=== PATIENT | male | born 2000 | race Caucasian/White ===

== ENCOUNTER → 2022-07-18 | Outpatient (CLI) | payer MEDICARE, MEDICAID | LOC: WOUNDCARE 14:20 | PROVIDERS: ATTEND Family Medicine | DX: L89.324 Pressure ulcer of left buttock, stage 4 (principal); L89.223 Pressure ulcer of left hip, stage 3; L89.153 Pressure ulcer of sacral region, stage 3; L89.213 Pressure ulcer of right hip, stage 3; L97.522 Non-pressure chronic ulcer of other part of left foot with fat layer exposed; M62.3 Immobility syndrome (paraplegic); G82.21 Paraplegia, complete; D64.4 Congenital dyserythropoietic anemia; E43 Unspecified severe protein-calorie malnutrition; T65.292A Toxic effect of other tobacco and nicotine, intentional self-harm, initial encounter | CPT/HCPCS: 11042; 11044; 11047; 87070; 87077; 87205 ==

== ENCOUNTER → 2022-07-28 | Outpatient (CLI) | payer MEDICARE, MEDICAID | LOC: WOUNDCARE 13:10 | PROVIDERS: ATTEND Family Medicine | DX: L89.324 Pressure ulcer of left buttock, stage 4 (principal); L89.223 Pressure ulcer of left hip, stage 3; L89.153 Pressure ulcer of sacral region, stage 3; L89.213 Pressure ulcer of right hip, stage 3; L97.522 Non-pressure chronic ulcer of other part of left foot with fat layer exposed; M62.3 Immobility syndrome (paraplegic); G82.21 Paraplegia, complete; D46.4 Refractory anemia, unspecified; E43 Unspecified severe protein-calorie malnutrition; T65.292A Toxic effect of other tobacco and nicotine, intentional self-harm, initial encounter; I96 Gangrene, not elsewhere classified | CPT/HCPCS: 11042; 11045; G0463 ==

== ENCOUNTER → 2022-08-01 | Outpatient (CLI) | payer MEDICARE, MEDICAID ==
[2022-08-01 17:23] LABS: BASOPHILS % (AUTO) 0 % (0-10); EOSINOPHILS # (AUTO) 0.2 10^3/uL (0.0-0.3); EOSINOPHILS % (AUTO) 2 % (0-10); HEMATOCRIT 35 % (40-54); HEMOGLOBIN 10.1 g/dL (13.3-17.7); LYMPHOCYTES # (AUTO) 2.4 10^3/uL (1.0-4.0); LYMPHOCYTES % (AUTO) 27 % (12-44); MEAN CORPUSCULAR HEMOGLOBIN 21 pg (25-34); MEAN CORPUSCULAR HGB CONC 29 g/dL (32-36); MEAN CORPUSCULAR VOLUME 74 fL (80-99); MEAN PLATELET VOLUME 9.2 fL (9.0-12.2); MONOCYTES # (AUTO) 0.8 10^3/uL (0.0-1.0); MONOCYTES % (AUTO) 9 % (0-12); NEUTROPHILS # (AUTO) 5.2 10^3/uL (1.8-7.8); NEUTROPHILS % (AUTO) 61 % (42-75); PLATELET COUNT 380 10^3/uL (130-400); WHITE BLOOD COUNT 8.6 10^3/uL (4.3-11.0)
[2022-08-01 17:38] LABS: ALBUMIN 3.7 GM/DL (3.2-4.5)
[2022-08-01 17:39] LABS: CALCIUM 8.7 MG/DL (8.5-10.1)
[2022-08-01 17:40] LABS: ERYTHROCYTE SEDIMENTATION RATE 22 MM/HR (0-15); TOTAL PROTEIN 7.1 GM/DL (6.4-8.2)
[2022-08-01 17:42] LABS: BILIRUBIN,TOTAL 0.3 MG/DL (0.1-1.0)
[2022-08-01 17:44] LABS: CREATININE SERUM 0.53 MG/DL (0.60-1.30)
== END ==
LOC: LABNPT 17:15
PROVIDERS: ATTEND Family Medicine
DX: L89.153 Pressure ulcer of sacral region, stage 3 (principal); D64.4 Congenital dyserythropoietic anemia; L89.324 Pressure ulcer of left buttock, stage 4; E43 Unspecified severe protein-calorie malnutrition
CPT/HCPCS: 80053; 82607; 82728; 82746; 83540; 83550; 84134; 85025; 85652; 86141

== ENCOUNTER → 2022-08-04 | Outpatient (CLI) | payer MEDICARE, MEDICAID | LOC: WOUNDCARE 13:16 | PROVIDERS: ATTEND Family Medicine | DX: I96 Gangrene, not elsewhere classified (principal); L89.213 Pressure ulcer of right hip, stage 3; L89.324 Pressure ulcer of left buttock, stage 4; M62.3 Immobility syndrome (paraplegic); G82.21 Paraplegia, complete; D46.4 Refractory anemia, unspecified; E43 Unspecified severe protein-calorie malnutrition; T65.292A Toxic effect of other tobacco and nicotine, intentional self-harm, initial encounter; L89.523 Pressure ulcer of left ankle, stage 3; Z68.1 Body mass index [BMI] 19.9 or less, adult | CPT/HCPCS: 11042; 11045; 17250; A6212; G0463 ==

== ENCOUNTER → 2022-08-11 | Outpatient (CLI) | payer MEDICARE, MEDICAID | LOC: WOUNDCARE 13:35 | PROVIDERS: ATTEND Family Medicine | DX: I96 Gangrene, not elsewhere classified (principal); L89.324 Pressure ulcer of left buttock, stage 4; L89.213 Pressure ulcer of right hip, stage 3; M62.3 Immobility syndrome (paraplegic); G82.21 Paraplegia, complete; D46.4 Refractory anemia, unspecified; E43 Unspecified severe protein-calorie malnutrition; T65.292A Toxic effect of other tobacco and nicotine, intentional self-harm, initial encounter; L89.523 Pressure ulcer of left ankle, stage 3; Z68.1 Body mass index [BMI] 19.9 or less, adult | CPT/HCPCS: 11042; 11045; A6212; G0463 ==

== ENCOUNTER → 2022-08-26 | Outpatient (CLI) | payer MEDICARE, MEDICAID | LOC: WOUNDCARE 10:36 | PROVIDERS: ATTEND Family Medicine | DX: L89.324 Pressure ulcer of left buttock, stage 4 (principal); L89.313 Pressure ulcer of right buttock, stage 3; L89.523 Pressure ulcer of left ankle, stage 3; M62.3 Immobility syndrome (paraplegic); G82.20 Paraplegia, unspecified; D46.4 Refractory anemia, unspecified; E43 Unspecified severe protein-calorie malnutrition; T65.292A Toxic effect of other tobacco and nicotine, intentional self-harm, initial encounter; I96 Gangrene, not elsewhere classified | CPT/HCPCS: 11042; 11045; A6212; G0463 ==

== ENCOUNTER → 2022-09-01 | Outpatient (CLI) | payer MEDICARE, MEDICAID | LOC: WOUNDCARE 13:06 | PROVIDERS: ATTEND Family Medicine | DX: I96 Gangrene, not elsewhere classified (principal); L89.324 Pressure ulcer of left buttock, stage 4; L89.213 Pressure ulcer of right hip, stage 3; M62.3 Immobility syndrome (paraplegic); G82.21 Paraplegia, complete; D46.4 Refractory anemia, unspecified; E43 Unspecified severe protein-calorie malnutrition; T65.292A Toxic effect of other tobacco and nicotine, intentional self-harm, initial encounter; L89.523 Pressure ulcer of left ankle, stage 3; Z68.1 Body mass index [BMI] 19.9 or less, adult | CPT/HCPCS: 11042; 11045; 87070; 87077; 87186; 87205; A6212; G0463 ==

== ENCOUNTER → 2022-09-06 | Outpatient (CLI) | payer MEDICARE, MEDICAID | LOC: WOUNDCARE 12:33 | PROVIDERS: ATTEND Family Medicine | DX: L89.324 Pressure ulcer of left buttock, stage 4 (principal); L89.213 Pressure ulcer of right hip, stage 3; L89.523 Pressure ulcer of left ankle, stage 3; M62.3 Immobility syndrome (paraplegic); D46.4 Refractory anemia, unspecified; E43 Unspecified severe protein-calorie malnutrition; T65.292A Toxic effect of other tobacco and nicotine, intentional self-harm, initial encounter; B95.62 Methicillin resistant Staphylococcus aureus infection as the cause of diseases classified elsewhere; I96 Gangrene, not elsewhere classified; G82.21 Paraplegia, complete | CPT/HCPCS: 11042; 11045; 97605; G0463 ==

== ENCOUNTER → 2022-09-22 | Outpatient (CLI) | payer MEDICARE, MEDICAID | LOC: WOUNDCARE 13:03 | PROVIDERS: ATTEND Family Medicine | DX: L89.324 Pressure ulcer of left buttock, stage 4 (principal); L89.213 Pressure ulcer of right hip, stage 3; M62.3 Immobility syndrome (paraplegic); G82.21 Paraplegia, complete; D46.4 Refractory anemia, unspecified; E43 Unspecified severe protein-calorie malnutrition; T65.292A Toxic effect of other tobacco and nicotine, intentional self-harm, initial encounter; I96 Gangrene, not elsewhere classified | CPT/HCPCS: 11042; 11045; 97605; A6212; G0463 ==

== ENCOUNTER 2022-10-14 20:13 | Emergency (ER) | payer MEDICARE, MEDICAID ==
[~2022-10-14] VITALS: Ht 190 cm; Wt 68.0 kg
[2022-10-14] MEDS ORDERED: LIDOCAINE UROJET 2% GEL 10 ML PKG ONE (20:57)
[2022-10-14] MEDS ORDERED: LIDOCAINE UROJET 2% GEL 10 ML PKG TOP ONE (21:00)
[2022-10-14 21:32] LABS: BILIRUBIN,URINE 1+ (NEGATIVE); CLARITY,URINE TURBID; COLOR,URINE YELLOW; GLUCOSE, URINE (UA) NEGATIVE (NEGATIVE); KETONES,URINE NEGATIVE (NEGATIVE); LEUKOCYTE ESTERASE ,URINE 2+ (NEGATIVE); NITRITE,URINE POSITIVE (NEGATIVE); PH,URINE 6.5 (5-9); PROTEIN,URINE 2+ (NEGATIVE)
[2022-10-14 21:39] LABS: BACTERIA,URINE LARGE /HPF; RBC,URINE 50-100 /HPF; WBC,URINE >100 /HPF
--- NOTE | 2022-10-14 21:47 | ED General ---
General Chief Complaint: General Problems/Pain Stated Complaint: CATHETER LEAKING Nursing Triage Note: PT TO ED W/ CARE WORKER FOR C/O CATHETER "ISSUES". CARE WORKER REPORTS PT'S CATHETER BEGAN LEAKING THIS EVENING SO THEY CALLED HOME HEALTH TO HAVE IT CHANGED ET HOME [facility]ALTH REPORTED TO THEM THEY NEEDED TO GO TO THE ED THEY "DIDN'T HAVE AN ORDER". PT ET CARE WORKER ALSO VOICE CONCERN OVER THE SEDIMENT IN PT'S URINE. Source of Information: Patient, Caregiver Exam Limitations: No Limitations History of Present Illness Date Seen by Provider: Oct 14, 2022 Time Seen by Provider: 20:45 Initial Comments Patient is a 21-year-old male paraplegic for the last 3 years brought to the emergency department by care worker chief complaint catheter "issues". She noticed increased sediment, he has had a little abdominal discomfort and nausea. Catheters been in place for about 2 weeks. No reported fevers or chills. No nausea vomiting. No diarrhea. Care worker is also a little concerned about his wound VAC to the left buttock. He is followed at wound care by Dr. Fernanda Caal. Patient reports no other concerns for illness. Timing/Duration: 1 Day Severity: Mild Associated Systoms: Denies Symptoms Allergies and Home Medications Allergies Coded Allergies: piperacillin (Unverified Allergy, Unknown, 10/14/22) tazobactam (Unverified Allergy, Unknown, 10/14/22) vancomycin (Unverified Allergy, Unknown, 10/14/22) Patient Home Medication List Home Medication List Reviewed: Yes Sulfamethoxazole/Trimethoprim (Bactrim Ds Tablet) 1 Each Tablet, 1 EACH PO BID Prescribed by: MAYO BOYLE on 10/14/222220 Review of Systems Review of Systems Constitutional: see HPI EENTM: no symptoms reported Respiratory: no symptoms reported Cardiovascular: no symptoms reported Gastrointestinal: nausea (slight abdominal discomfort) Genitourinary: other (sediment in catheter) Musculoskeletal: no symptoms reported Skin: other (wound vac concern) All Other Systems Reviewed Negative Unless Noted: Yes Past Itdoxzu-Dsnrxm-Cwpoit Hx Past Medical History Surgery/Hospitalization HX: [facility] PARAPLEGIC KIDNEY STONES T&A 10/13-PT PRESENTLY HAS WOUND VAC Physical Exam Vital Signs Vital Signs - First Documented 10/14/22 20:18 Temp 36.0 Pulse 108 Resp 20 B/P (MAP) 111/71 (84) Pulse Ox 100 O2 Delivery Room Air Capillary Refill : Less Than 3 Seconds Height, Weight, BMI Height: '" Weight: lbs. oz. kg; 18.00 BMI Method: General Appearance: No Apparent Distress, WD/WN HEENT: PERRL/EOMI Respiratory: Lungs Clear, Normal Breath Sounds, No Accessory Muscle Use, No Respiratory Distress Cardiovascular: Regular Rate, Rhythm Gastrointestinal: Soft Genital/Rectal: Other (unclean area; circumcised; meek in place - tubing is dirty and lots of sediment) Extremity: Normal Inspection Neurologic/Psychiatric: Alert, Oriented x3 Skin: Normal Color, Warm/Dry, Other (wound to right buttock with wound vac in place; peeling up inferiorly. foul smell from vac) Progress/Results/Core Measures Suspected Sepsis SIRS Temperature: Pulse: 108 Respiratory Rate: 20 Blood Pressure 111 /71 Mean: 84 Results/Orders Lab Results Laboratory Tests Test 10/14/22 21:27 Range/Units Urine Color YELLOW Urine Clarity TURBID Urine pH 6.5 5-9 Urine Specific [place] >=1.030 1.016-1.022 Urine Protein 2+ H NEGATIVE Urine Glucose (UA) NEGATIVE NEGATIVE Urine Ketones NEGATIVE NEGATIVE Urine Nitrite POSITIVE H NEGATIVE Urine Bilirubin 1+ H NEGATIVE Urine Urobilinogen 1.0 < = 1.0 MG/DL Urine Leukocyte Esterase 2+ H NEGATIVE Urine RBC (Auto) 3+ H NEGATIVE Urine RBC 50-100 H /HPF Urine WBC >100 H /HPF Urine Squamous Epithelial Cells NONE /HPF Urine Renal Epithelial Cells NONE /HPF Urine Crystals NONE /LPF Urine Bacteria LARGE H /HPF Urine Casts NONE /LPF Urine Mucus LARGE H /LPF Urine Culture Indicated YES My Orders Orders - MAYO BOYLE MD Catheter(Urinary) Insert & Ass 03 (10/14/22 20:56) Lidocaine 2% (Urojet) (Xylocaine Urojet) (10/14/22 21:00) Ua Culture If Indicated (10/14/22 20:56) Lidocaine 2% (Urojet) (Xylocaine Urojet) (10/14/22 20:57) Urine Culture (10/14/22 21:27) Sulfamethoxazole/Trimet Ds Tab (Bactrim (10/14/22 22:15) Sod Hypochlorite 0.125% 237 Ml (Dakin's (10/14/22 22:18) Medications Given in ED Current Medications Medications Dose Ordered Sig/Jenaro Route Start Time Stop Time Status Last Admin Dose Admin Lidocaine HCl 10 ml ONCE ONCE TOP 10/14/22 21:00 10/14/22 21:01 DC 10/14/22 21:20 10 ML Vital Signs/I&O 10/14/22 20:18 Temp 36.0 Pulse 108 Resp 20 B/P (MAP) 111/71 (84) Pulse Ox 100 O2 Delivery Room Air Capillary Refill : Less Than 3 Seconds Blood Pressure Mean: 84 Progress Note : Time: 22:16 Progress Note Wound VAC discussed with Dr. Dorantes. He recommends cleaning with Dakin's solution and doing wet-to-dry dressings until the patient can follow-up with Dr. Caal at wound care clinic. Patient also noted to have evidence of urinary tract infection. We will start him on Bactrim DS twice daily for 10 days. Encourage lots of water. Close follow-up with primary care. Departure Impression Primary Impression: UTI (urinary tract infection) Qualified Codes: T83.511A - Infection and inflammatory reaction due to indwelling urethral catheter, initial encounter; N39.0 - Urinary tract infection, site not specified Additional Impressions: paraplegia at T6 Wound of sacral region Qualified Codes: S31.000A - Unspecified open wound of lower back and pelvis without penetration into retroperitoneum, initial encounter Disposition: 01 HOME, SELF-CARE Condition: Stable Departure-Patient Inst. Decision time for Depature: 22:19 Referrals: RIGOBERTO ATKINSON DO (PCP/Family) Primary Care Physician Patient Instructions: Urinary Tract Infection, Adult (DC) Add. Discharge Instructions: Take the Bactrim antibiotic twice a day for 10 days. Finish the entire course. Zofran, 4mg tablet, every 8 hours as needed for nausea. You need to drink lots of water while you are taking this antibiotic, stay well- hydrated. Use the Dakin's solution to clean the wound twice daily and put wet-to-dry dressings on the wound until you can follow-up on Monday or Monday with Dr. Caal at wound care clinic. If you develop a fever over 100.4, abdominal pain, vomiting or any other emergent, concerning symptoms please come back to the emergency room for reevaluation. Scripts Ondansetron (Ondansetron Odt) 4 Mg Tab.rapdis 4 MG SL Q8H PRN for NAUSEA/VOMITING, #20 TAB Prov: MAYO BOYLE MD 10/14/22 Sulfamethoxazole/Trimethoprim (Bactrim Ds Tablet) 1 Each Tablet 1 EACH PO BID for 10 Days, #20 TAB Prov: MAYO BOYLE MD 10/14/22 Copy Copies To 1: RIGOBERTO ATKINSON V DO Copies To 2: FERNANDA CAAL MD, KATHRYN M MD Oct 14, 2022 21:47
[2022-10-14] MEDS ORDERED: TRIM/SULFAMETH 160/800 (SEPTRA DS) TAB PO ONE (22:15)
[2022-10-14] MEDS ORDERED: DAKIN'S 1/4 STRENGTH (0.125%) 237 ML BTL TOP STA (22:18)
[2022-10-14] MEDS ORDERED: SULF1TAB38 PO (22:21)
[2022-10-14] MEDS ORDERED: ONDA4TAB11 SL (22:23)
[2022-10-14 23:06] VITALS: BP 115/68
== END 2022-10-14 23:06 | disposition home or self-care (01) ==
LOC: EDUNIT# 20:13 → ER 20:16
DX: T83.511A Infection and inflammatory reaction due to indwelling urethral catheter, initial encounter (principal); S30.91XA Unspecified superficial injury of lower back and pelvis, initial encounter; N39.0 Urinary tract infection, site not specified; G82.20 Paraplegia, unspecified; Z88.1 Allergy status to other antibiotic agents; X58.XXXA Exposure to other specified factors, initial encounter
CPT/HCPCS: 51702; 81000; 87077; 87088; 87186

== ENCOUNTER → 2022-10-21 | Outpatient (CLI) | payer MEDICARE, MEDICAID ==
[~2022-10-21] MED LIST: ONDA4TAB11 SL; SULF1TAB38 PO
== END ==
LOC: WOUNDCARE 10:12
PROVIDERS: ATTEND Family Medicine
DX: I96 Gangrene, not elsewhere classified (principal); L89.324 Pressure ulcer of left buttock, stage 4; L89.213 Pressure ulcer of right hip, stage 3; M62.3 Immobility syndrome (paraplegic); T65.292A Toxic effect of other tobacco and nicotine, intentional self-harm, initial encounter; G82.21 Paraplegia, complete; D46.4 Refractory anemia, unspecified; E43 Unspecified severe protein-calorie malnutrition; Z68.1 Body mass index [BMI] 19.9 or less, adult
CPT/HCPCS: 11042; 11045; G0463